=== PATIENT | female | born 1960 | race Caucasian/White ===

== ENCOUNTER 2021-04-18 10:46 | Outpatient (REF) | payer BC, SELFPAY ==
--- NOTE | ~2021-04-18 | MM_ITS ---
EXAMINATION: MM SCREENING DIGITAL BREAST TOMOSYNTHESIS, BILATERAL CLINICAL INFORMATION: Screening. Asymptomatic. The lifetime risk of breast cancer based on the Tyrer-Cuzick Model is 8.2%. COMPARISON: Mammography: December 12, 2019 and studies dating back to September 04, 2010 TECHNIQUE: Digital breast tomosynthesis is performed in both the craniocaudal and mediolateral oblique views along with computer-aided detection (CAD). Synthesized 2D images are generated from the tomosynthesis. FINDINGS: The breasts are heterogeneously dense, which may obscure small masses (ACR BI-RADS breast composition Category c). There are no significant masses, abnormal calcifications, or other abnormalities. MM/MM tomosynthesis screening BI IMPRESSION: There are no significant changes from prior study. ASSESSMENT: BI-RADS 1: Negative RECOMMENDATION: Routine annual mammography screening. This patient's information was entered into a reminder system with a target due date for their next mammogram.
== END 2021-04-18 10:47 | disposition home or self-care (01) ==
LOC: HO.MAMMO 10:46
PROVIDERS: PCP Internal Medicine; Visit Provider Nurse Practitioner Family
DX: Z12.31 Encounter for screening mammogram for malignant neoplasm of breast (principal)
CPT/HCPCS: 77063; 77067

== ENCOUNTER 2021-11-29 13:11 | Emergency (ER) | payer BC, SELFPAY ==
--- NOTE | ~2021-11-29 | XR_ITS ---
EXAMINATION: XR CHEST CLINICAL INFORMATION: Cough COMPARISON: Previous chest x-ray September 2018 TECHNIQUE: 2 views of the chest were obtained. FINDINGS: No significant abnormality is noted involving the heart, lungs, mediastinum, bony thorax or soft tissues. XR/XR chest 2V IMPRESSION: Unremarkable examination.
[2021-11-29 14:49] VITALS: BP 127/74; PULSE 89; RESP 18; TEMP 36.7; O2SAT 100; BMI 30.2
[2021-11-29 15:24] LABS: MANUAL DIFF FLAG NO
[2021-11-29 15:26] LABS: Basophils Percent Auto 0.7 % (0-2); Eosinophils Absolute Auto 0.1 X10*3/uL (0.0-0.4); Eosinophils Percent Auto 1.5 % (0-4); Hematocrit 42.9 % (37.0-47.0); Hemoglobin 13.9 g/dl (12.0-16.0); Imm Gran Abs Auto 0.05 X10*3/uL (0.00-0.03); Imm Gran Pct Auto 0.8 % (0.0-0.4); Lymphocytes Absolute Auto 1.1 X10*3/uL (1.2-4.9); Lymphocytes Percent Auto 17.8 % (20-40); Mean Corpuscular HGB Conc 32.4 g/dl (31.0-35.0); Mean Corpuscular Hemoglobin 33.8 pg (27.0-33.0); Mean Corpuscular Volume 104.4 fL (80.0-98.0); Mean Platelet Volume 10.1 fL (9.4-12.3); Monocytes Absolute Auto 0.6 X10*3/uL (0.1-1.2); Monocytes Percent Auto 9.3 % (2-11); Neutrophils Absolute Auto 4.2 x10*3/uL (2.0-8.3); Neutrophils Percent Auto 69.9 % (45-73); Platelet Count 207 X10*3/uL (160-400); Red Blood Count 4.11 X10*6/uL (4.20-5.50); Red Cell Distribution Width 12.2 % (11.0-16.0); White Blood Count 5.9 X10*3/uL (4.8-10.8)
[2021-11-29 15:40] LABS: Alanine Aminotransferase 100 U/L (0-31); Albumin Level 4.3 g/dL (3.5-5.0); Alkaline Phosphatase 92 U/L (39-117); Anion Gap 12 (12-20); Aspartate Amino Transferase 100 U/L (5-31); Bilirubin Total 0.2 mg/dL (0.0-1.0); Blood Urea Nitrogen 9 mg/dL (9-16); Calcium 9.4 mg/dL (8.4-10.2); Carbon Dioxide 28 mmol/L (22-29); Chloride 102 mmol/L (96-108); Creatinine Clr Calc Pharmacy 90.8; Estimated Glomerular Filt Rate > 60; Glucose Random 122 mg/dL (60-115); Potassium 4.1 mmol/L (3.3-5.1); Sodium 138 mmol/L (135-145); Total Protein 7.3 g/dL (6.5-8.0)
[2021-11-29 15:42] LABS: COVID-19 Test Negative (Negative)
[2021-11-29 18:43] LABS: Appearance Urine HAZY; Color Urine YELLOW; Glucose Urine UA NEG (NEG); Leukocyte Esterase Urine NEG (NEG); Nitrite Urine POS (NEG); Specific Gravity - Urine 1.025 (1.005-1.025); UACC Culture Trigger YES; Urine Blood NEG (NEG); Urine Ketones 5 MG/DL (NEG); Urine Protein NEG (NEG-TRACE)
[2021-11-29 18:50] LABS: RBC Urine 0 /HPF (0)
[2021-11-29 18:52] LABS: Bacteria Urine 3+ /LPF; Squamous Epithelial Cell Urine 2+ /LPF
== END 2021-11-29 19:25 | disposition left against medical advice (07) ==
PROVIDERS: Emergency Provider Emergency Medicine; PCP Internal Medicine
DX: R10.11 Right upper quadrant pain (principal); R05.9 Cough, unspecified; Z20.822 Contact with and (suspected) exposure to COVID-19; Z79.899 Other long term (current) drug therapy
CPT/HCPCS: 71046; 80053; 81001; 85025; 87086; 87088; 87186; 87635; 99282; 99283

== ENCOUNTER 2021-11-30 07:32 | Emergency (ER) | payer BC, SELFPAY ==
[2021-11-30 07:42] VITALS: PULSE 102; RESP 19; TEMP 36.1; O2SAT 96; BMI 30.2
== END 2021-11-30 11:33 | disposition left against medical advice (07) ==
PROVIDERS: Emergency Provider Emergency Medicine; PCP Internal Medicine
DX: R10.9 Unspecified abdominal pain (principal)
CPT/HCPCS: 99281; 99282

== ENCOUNTER 2022-06-02 14:57 | Outpatient (REF) | payer BC, SELFPAY ==
--- NOTE | ~2022-06-02 | MM_ITS ---
EXAMINATION: MM SCREENING DIGITAL BREAST TOMOSYNTHESIS, BILATERAL CLINICAL INFORMATION: Screening. Asymptomatic. The lifetime risk of breast cancer based on the Tyrer-Cuzick Model is 6%. COMPARISON: Mammography: 04/18/2021 and prior exams dating back to 05/01/2009. TECHNIQUE: Digital breast tomosynthesis is performed in both the craniocaudal and mediolateral oblique views along with computer-aided detection (CAD). Synthesized 2D images are generated from the tomosynthesis. FINDINGS: The breasts are heterogeneously dense, which may obscure small masses (ACR BI-RADS breast composition Category c). Right CC tomography has 0.6 cm equal attenuation nodule posterior 1:00 position close to skin 12 cm from nipple. There is no correlate on MLO view. This may represent a dermal lesion. Otherwise, there are no significant masses, abnormal calcifications, or other abnormalities. No developing density or architectural abnormality. The axilla are unremarkable. MM/MM tomosynthesis screening BI IMPRESSION: Right: -Equal attenuation 0.6 cm asymmetric density posterior 1:00 position close to skin, possibly dermal. Left: -No mammographic evidence of malignancy. ASSESSMENT: BI-RADS 0: Incomplete - Need Additional Imaging Evaluation RECOMMENDATION: 1. Assess for dermal lesion and obtain images with skin marker, if applicable. 2. Otherwise targeted right breast ultrasound. 3. Radiology department staff will contact the patient for additional imaging. This patient's information was entered into a reminder system with a target due date for their next mammogram.
== END 2022-06-02 14:58 | disposition home or self-care (01) ==
LOC: HO.MAMMO 14:57
PROVIDERS: Visit Provider Nurse Practitioner Family
DX: Z12.31 Encounter for screening mammogram for malignant neoplasm of breast (principal)
CPT/HCPCS: 77063; 77067

== ENCOUNTER 2022-06-18 13:25 | Outpatient (REF) | payer BC, SELFPAY ==
--- NOTE | ~2022-06-18 | MM_ITS ---
EXAMINATION: MM DIAGNOSTIC DIGITAL BREAST TOMOSYNTHESIS, RIGHT US BREAST TARGETED, RIGHT CLINICAL INFORMATION: Right breast nodule. COMPARISON: Mammography: 06/02/2022 and studies dating back to 09/04/2010 TECHNIQUE: Digital breast tomosynthesis is performed. 2D images are generated from the tomosynthesis. The following views are obtained: Right breast craniocaudal and mediolateral oblique projections. Targeted right breast ultrasound. FINDINGS: The breasts are heterogeneously dense, which may obscure small masses (ACR BI-RADS breast composition Category c). MAMMOGRAM: The breast was examined with one inferiorly mole identified. This corresponds to one skin lesion however the deeper circumscribed density lying approximately 12 cm from the nipple by tomosynthesis lies superiorly within the breast with no corresponding physical lesion identified. This appears to be either skin or close to the skin type of lesion due to its position on tomosynthesis. ULTRASOUND: Targeted right breast ultrasound superiorly did not demonstrate any corresponding cystic or solid mass. No region of abnormal distal sound shadowing or edematous change within the parenchyma identified. Results are discussed with the patient at time of visit. MM/MM tomosynthesis added views R IMPRESSION: More superior and posterior lesion which appears to be related to skin by tomosynthesis position not identified on ultrasound. This is well-circumscribed without calcification. Recommend 6 month follow-up right breast mammogram. ASSESSMENT: BI-RADS 3: Probably Benign RECOMMENDATION: Diagnostic mammography in 6 months. This patient's information was entered into a reminder system with a target due date for their next mammogram.
--- NOTE | ~2022-06-18 | US_ITS ---
EXAMINATION: MM DIAGNOSTIC DIGITAL BREAST TOMOSYNTHESIS, RIGHT US BREAST TARGETED. RIGHT CLINICAL INFORMATION: Right breast nodule. COMPARISON: Mammography: 06/02/2022 and studies dating back to 09/04/2010. TECHNIQUE: Digital breast tomosynthesis is performed. 2D images are generated from the tomosynthesis. The following views are obtained: Right breast craniocaudal and mediolateral oblique projections. Targeted right breast ultrasound. FINDINGS: The breasts are heterogeneously dense, which may obscure small masses (ACR BI-RADS breast composition Category c). MAMMOGRAM: The breast was examined with one inferior mole identified. This corresponds to one skin lesion however the deeper circumscribed density lying approximately 12 cm from the nipple by tomosynthesis lies superiorly within the breast with no corresponding physical lesion identified. This appears to be either skin or close to the skin type of lesion due to its position on tomosynthesis. ULTRASOUND: Targeted right breast ultrasound superiorly did not demonstrate any corresponding cystic or solid mass. No region of abnormal distal sound shadowing or edematous change within the parenchyma identified. Results are discussed with the patient at time of visit. US/US breast RT limited IMPRESSION: More superior and posterior lesion which appears to be related to skin by tomosynthesis position not identified on ultrasound. This is well-circumscribed without calcification. Recommend 6 month follow-up right breast mammogram. ASSESSMENT: BI-RADS 3: Probably Benign RECOMMENDATION: Diagnostic mammography in 6 months. This patient's information was entered into a reminder system with a target due date for their next mammogram.
== END 2022-06-18 13:26 | disposition home or self-care (01) ==
LOC: HO.MAMMO 13:25
PROVIDERS: PCP Nurse Practitioner Family; Visit Provider Nurse Practitioner Family
DX: R92.8 Other abnormal and inconclusive findings on diagnostic imaging of breast (principal)
CPT/HCPCS: 76642; 77061; 77065

== ENCOUNTER 2022-12-19 13:16 | Outpatient (REF) | payer BC, SELFPAY ==
--- NOTE | ~2022-12-19 | MM_ITS ---
EXAMINATION: MM DIAGNOSTIC DIGITAL BREAST TOMOSYNTHESIS, RIGHT CLINICAL INFORMATION: Short interval six-month follow-up right breast to exclude occult developing density posterior 1:00 right CC. TC score 6%. COMPARISON: Mammography: 06/18/2022, 05/03/2022, 04/18/2021, 12/12/2019; right breast ultrasound 06/18/2022 TECHNIQUE: Digital breast tomosynthesis is performed in both the craniocaudal and mediolateral oblique views along with computer-aided detection (CAD). Synthesized 2D images are generated from the tomosynthesis. Additional right CC view is provided. FINDINGS: The breasts are heterogeneously dense, which may obscure small masses (ACR BI-RADS breast composition Category c). There is no developing density or interval mass or architectural abnormality. Parenchymal pattern is similar to prior studies. The nodular asymmetry posterior 1:00 position noted on screening exam 06/02/2022 showed no correlate at recall 06/18/2022 and is not demonstrated on current exam. Results are provided to the patient at time of visit by the technologist. MM/MM tomosynthesis diagnostic RT IMPRESSION: No mammographic evidence of malignancy. ASSESSMENT: BI-RADS 1: Negative RECOMMENDATION: Routine annual mammography screening. This patient's information was entered into a reminder system with a target due date for their next mammogram.
== END 2022-12-19 13:17 | disposition home or self-care (01) ==
LOC: HO.MAMMO 13:16
PROVIDERS: PCP Nurse Practitioner Family; Visit Provider Nurse Practitioner Family
DX: N64.89 Other specified disorders of breast (principal)
CPT/HCPCS: 77061; 77065

== ENCOUNTER 2023-06-08 14:37 | Outpatient (REF) | payer BC, SELFPAY ==
--- NOTE | ~2023-06-08 | MM_ITS ---
EXAMINATION: MM SCREENING DIGITAL BREAST TOMOSYNTHESIS, BILATERAL CLINICAL INFORMATION: Screening. Asymptomatic. The lifetime risk of breast cancer based on the Tyrer-Cuzick Model is 5.7%. COMPARISON: Mammography: This study is compared with prior exams dating back to 2018. TECHNIQUE: Digital breast tomosynthesis is performed in both the craniocaudal and mediolateral oblique views along with computer-aided detection (CAD). Synthesized 2D images are generated from the tomosynthesis. FINDINGS: There are scattered areas of fibroglandular density (ACR BI-RADS breast composition Category b). There are no significant masses, abnormal calcifications, or other abnormalities. MM/MM tomosynthesis screening BI IMPRESSION: No mammographic evidence of malignancy. ASSESSMENT: BI-RADS BI-RADS 1 - Negative RECOMMENDATION: Routine annual mammography screening. 1 year F/U This examination should not preclude the clinical evaluation of a suspicious palpable abnormality. This patient's information was entered into a reminder system with a target due date for their next mammogram.
== END 2023-06-08 14:38 | disposition home or self-care (01) ==
LOC: HO.MAMMO 14:37
PROVIDERS: PCP Nurse Practitioner Family; Visit Provider Internal Medicine
DX: Z12.31 Encounter for screening mammogram for malignant neoplasm of breast (principal)
CPT/HCPCS: 77063; 77067

== ENCOUNTER → 2023-06-08 15:00 | Outpatient (BNV) | payer BC, SELFPAY | PROVIDERS: PCP Nurse Practitioner Family; Visit Provider Radiology Diagnostic Radiology | DX: Z12.31 Encounter for screening mammogram for malignant neoplasm of breast (principal) | CPT/HCPCS: 77063; 77067 ==

== ENCOUNTER 2024-07-12 10:49 | Outpatient (REF) | payer MEDICARE, SELFPAY ==
--- NOTE | ~2024-07-12 | MM_ITS ---
EXAMINATION: MM SCREENING DIGITAL BREAST TOMOSYNTHESIS, BILATERAL CLINICAL INFORMATION: Screening. Asymptomatic. COMPARISON: Mammography: This study is compared with prior exams dating back to 2017. TECHNIQUE: Digital breast tomosynthesis is performed in both the craniocaudal and mediolateral oblique views along with computer-aided detection (CAD). Synthesized 2D images are generated from the tomosynthesis. FINDINGS: The breasts are heterogeneously dense, which may obscure small masses (ACR BI-RADS breast composition Category c). There are no significant masses, abnormal calcifications, or other abnormalities. MM/MM tomosynthesis screening BI IMPRESSION: No mammographic evidence of malignancy. ASSESSMENT: BI-RADS BI-RADS 1 - Negative RECOMMENDATION: Routine annual mammography screening. 1 year F/U This examination should not preclude the clinical evaluation of a suspicious palpable abnormality. This patient's information was entered into a reminder system with a target due date for their next mammogram. Electronically signed by: Mari [place]amo MD 08/09/2024 01:15 PM EDT
== END 2024-07-12 10:50 | disposition home or self-care (01) ==
LOC: HO.MAMMO 10:49
PROVIDERS: PCP Internal Medicine; Visit Provider Internal Medicine
DX: Z12.31 Encounter for screening mammogram for malignant neoplasm of breast (principal)
CPT/HCPCS: 77063; 77067

== ENCOUNTER → 2024-07-12 11:00 | Outpatient (BNV) | payer MEDICARE, SELFPAY | PROVIDERS: PCP Internal Medicine; Visit Provider Radiology Diagnostic Radiology | DX: Z12.31 Encounter for screening mammogram for malignant neoplasm of breast (principal) | CPT/HCPCS: 77063; 77067 ==

== ENCOUNTER 2025-07-17 09:45 | Outpatient (REF) | payer MEDICARE, BC, SELFPAY ==
--- OUTSIDE RECORDS SUMMARY | 2025-07-17 10:36 | XMS_ITS | Clinical Summary ---
Author Organization [facility] Address [address] [place] [address] Care Team Providers Care Trade Union Official Name Role Phone Unavailable Primary Care Provider Unavailabl e Immunizations Name Administration Dates Next Due Covid-19 (Pfizer) Dilution Required 01/01/2021 Social History Tobacco Use Types Packs/Day Years Used Date Smoking Tobacco: Never Assessed Sex and Gender Information Value Date Recorded Sex Assigned at Female 01/01/2021 11:44 AM EST Gender Identity Not on file Sexual Orientation Not on file Plan of Treatment Health Maintenance Due Date Last Done Comments Hepatitis C Screening 1959 Depression Screening 1971 Preventative Health Evaluation 1977 Colon Cancer Screening (Colonoscopy) 2004 Breast Cancer Screening (Mammogram) 2009 Fall Risk Assessment 2024 Osteoporosis Screening (DEXA Scan) 2024 COVID-19 Vaccine ( season) 2024 07/23/2021, 01/01/2021, 12/11/2020 Influenza Vaccine (#1) 2025 , 10/15/2022, 09/27/2021, Additional history exists Pneumococcal Vaccine (3 of 3 - PPSV23 or PCV20) 09/26/2025 09/26/2020, 09/02/2019 DTap / Tdap / Td (3 - Td or Tdap) 04/21/2032 04/21/2022, 05/19/2012 RSV Adult > 60+ Yrs or (1 - 1-dose 75+ series) 2034 Shingrix-Zoster Vaccine Completed 09/18/2023, 09/27 Hepatitis B Vaccines Aged Out No long er eligible based on patient's age to complete this topic RSV Ped < 20 months Aged Out No longe r eligible based on patient's age to complete this topic
--- OUTSIDE RECORDS SUMMARY | 2025-07-17 10:36 | XMS_ITS | Encounter Summary ---
Author Organization [facility] Address [address] [place] [address] Phone Care Team Providers Care Food And Beverage Manager Name Role Phone Jaycob Khan MD Unavailable [phone] PerksAraseli PASTRYCOOK'S ASSISTANT Unavailable [phone] Jaycob Khan MD Primary Care Provider [phone] Abbie Motta PASTRYCOOK'S ASSISTANT Unavailable [phone] Jaycob Khan MD Primary Care Provider Abbie Motta PASTRYCOOK'S ASSISTANT Primary Care Provider Jaycob Khan MD Primary Care Provider Abbie Motta PASTRYCOOK'S ASSISTANT Primary Care Provider Jaycob Khan MD Primary Care Provider Abbie Motta PASTRYCOOK'S ASSISTANT Primary Care Provider Velma Mccullough RN Unavailable [phone] Velma Mccullough RN Unavailable [phone] Liz Nielson Unavailable [email or web address] Jazmin Burt A Primary Care Provider [phone] Jazmin Burt A Unavailable [phone] Jazmin Burt MD Unavailable Encounter Details Date Type Department Care Team (Late st Contact Info) Description 11/28/2020 Procedure Pass [address] [address] Social History Tobacco Use Types Packs/Day Years Used Date Smoking Tobacco: Every Day Cigarettes 0.5 40 Smokeless Tobacco: Never Alcohol Use Standard Drinks/Week Comments Yes 7 (1 standard drink = 0.6 oz pur e alcohol) 1 glass of wine nightly Comments No Sex and Gender Information Value Date Recorded Sex Assigned at Female 01/20/2023 2:58 PM EST Legal Sex Female 4:57 PM EST Gender Identity Female 01/20/2023 2:58 PM EST Sexual Orientation Straight 01/20/2023 2: 58 PM EST documented as of this encounter Plan of Treatment Upcoming Encounters Date Type Department Care Team (Late st Contact Info) Description 07/20/2025 11:00 AM EDT Office Visit [facility] at [address] [place] [id number] Natalie Porras MD [address] [address] [email or web address] 08/07/2025 Procedure Pass [facility] Endoscopy Admitting Dept Virtual Department [address] [place] [id number] 08/07/2025 11:30 AM EDT Hospital Encounter [facility] Admitting [facility] Virtual Department [address] [place] [address] Abdifatah Gatica MD [address] [place] [address] 08/07/2025 11:30 AM EDT - 08/07/2025 11:45 AM EDT Surgery [facility] Endoscopy Admitting Dept Virtual Department [address] [place] [address] Abdifatah Gatica MD [address] [address] [email or web address] COLONOSCOPY 12/01/2025 11:20 AM EST Office Visit [facility] Rheumatology [address], [address] [place] [address] Penelope Glez MD 55 [facility] [address] [address] [email or web address] Scheduled Procedures Name Priority Associated Diagnoses Date/Ti me COLONOSCOPY Personal history of colon polyps, unspecified 08/07/2025 11:30 AM EDT documented as of this encounter Visit Diagnoses Not on filedocumented in this encounter Additional Health Concerns Infection Onset Date Last Indicated Resolved Time 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 03/05/2021 03/05/2023 1:21 AM EDT CoV-Risk Comment:Per Ambulatory Triage Form 11/29/2021 12/03/202112/13 1:23 AM EST CoV-Presumed 04/13/2022 04/13/2022 05/04/2022 1:21 AM EDT COVID-19 12/03/2023 12/03/2023 12/24/2023 1:24 AM EST Assessment Noted Time PHQ-2 Depression Total Score: 0 01/12/20 11:40 AM EST documented as of this encounter Care Teams Food And Beverage Manager Relationship Specialty Start Date End Date Jaycob Khan MD [address] [place] [phone] PCP - General Internal Medicine 09/14/20 12/12/20 Jaycob Khan MD [address] [place] [address] PCP - General Internal Medicine 12/13/20 06/02/21 Abbie Motta, PASTRYCOOK'S ASSISTANT [address] [place] [address] [email or web address] PCP - General Family Medicine 06/03/21 07/24/21 Jaycbo Khan MD [address] [place] [address] [email or web address] PCP - General Internal Medicine 07/25/21 11/17/21 Abbie Motta NP [address] [place] [address] [email or web address] PCP - General Family Medicine 11/18/21 12/19/21 Jaycob Khan MD [address] [place] [phone] [email or web address] PCP - General Internal Medicine 12/20/21 01/05/22 Abbie Motta NP [address] [place] [phone] [email or web address] PCP - General Family Medicine 01/06/22 01/26/24 Jazmin Burt MD [address] [place] [address], [address] [place] [address] [email or web address] PCP - General Internal Medicine 01/27/24 Jaycob Khan MD [address] [place] [phone] [email or web address] Insurance Assigned Provider 02/27/24 04/30/24 Araseli Morejon PASTRYCOOK'S ASSISTANT [address] [place] [address] Gynecology 09/02/19 Abbie Motta NP [address] [place] [address] [email or web address] Nurse Practitioner Family Medicine 09/14/20 11/17/21 Velma Mccullough RN [address] [place] [address] [email or web address] Health Social Worker 09/28/23 10/28/23 Velma Mccullough RN [address] [place] [address] [employer] Mental Health Social Worker 12/10/23 Liz Nielson [address] [place] [address] [email or web address] Assistant Director 12/21/23 12/21/23 Jazmin Burt MD [address] [place] [phone] Insurance Assigned Provider 04/30/24 08/28/24 Jazmin Burt MD [address] [place] [phone] Insurance Assigned Provider 02/26/25 documented as of this encounter Additional Source Comments The information contained in this document represents components of the legal health record. It is not the complete legal health record.[facility]
--- OUTSIDE RECORDS SUMMARY | 2025-07-17 10:36 | XMS_ITS | Clinical Summary ---
Author Organization [address] Address [address] [place] [address] Phone Care Team Providers Care Photo Tech Name Role Phone Unavailable Primary Care Provider Unavailabl e Social History Tobacco Use Types Packs/Day Years Used Date Smoking Tobacco: Never Assessed Comments Unknown Sex and Gender Information Value Date Recorded Sex Assigned at Not on file Legal Sex Female 3:17 PM EDT Gender Identity Not on file Sexual Orientation Not on file Plan of Treatment Health Maintenance Due Date Last Done Comments HIV screening 1972 Hepatitis C screening 1977 Tetanus adult (Td q 10,TDAP once) 1979 Breast cancer screening 1999 Lipid disorder screening 1999 Colon cancer screening, Colonoscopy 2004 Diabetes screening 2004 Pneumococcal Vaccine (50+ ye ars) (1 of 1 - PCV) 2009 Shingles vaccine (Shingrix) (1 of 2 - Shingrix (RZV) 2 Dose Standard Series) 2009 Osteoporosis screening (bone density) 2024 Covid-19 vaccine series ( season) 2024 Influenza vaccine 07/24/2025 RSV Immunization (1 - 1-dose 75+ series) 2034 Cervical cancer screening Discontinued Meningococcal B Vaccine Aged Out No l onger eligible based on patient's age to complete this topic Meningococcal Vaccine Aged Out No ashly ana maría eligible based on patient's age to complete this topic
== END 2025-07-17 09:46 | disposition home or self-care (01) ==
LOC: HO.MAMMO 09:45
PROVIDERS: PCP Internal Medicine; Visit Provider Internal Medicine
DX: Z12.31 Encounter for screening mammogram for malignant neoplasm of breast (principal)
CPT/HCPCS: 77063; 77067

== ENCOUNTER → 2025-07-17 10:00 | Outpatient (BNV) | payer MEDICARE, BC, SELFPAY | PROVIDERS: PCP Internal Medicine; Visit Provider Internal Medicine | DX: Z12.31 Encounter for screening mammogram for malignant neoplasm of breast (principal) | CPT/HCPCS: 77063; 77067 ==